=== PATIENT | female | born 1975 | race Caucasian/White ===

== ENCOUNTER → 2022-03-12 | Outpatient (CLI) | payer SELFPAY ==
[2022-03-12 15:09] LABS: Estradiol 24.1 pg/mL; Follicle Stimulating Hormone 10.6 mIU/mL; Luteinizing Hormone 2.1 mIU/mL; Prolactin 8.8 ng/mL; Thyroid Stim Hormone (TSH) 1.55 uIU/mL (0.358-3.74)
[2022-03-21 14:12] LABS: HPV APTIMA, High Risk Negative (Negative)
== END | disposition home or self-care (01) ==
PROVIDERS: Visit Provider Student in an Organized Health Care Education/Training Program
DX: N93.9 Abnormal uterine and vaginal bleeding, unspecified (principal)
CPT/HCPCS: 36415; 82670; 83001; 83002; 84146; 84443; 87624; 88175; G0145

== ENCOUNTER → 2022-05-17 | Outpatient (CLI) | payer SELFPAY ==
--- NOTE | 2022-05-17 | EMB_PTH ---
PATIENT: ANNA GUPTA LOC: [facility] U#:[id number] AGE/SX: 46/F ROOM: RE05/17/[address]: Dr. Evelyn Mcgee, : 1975 BED: DIS: 05/17/2022 SPEC #: [id number] RECD: 05/17/22 12:12 STATUS: GIORGI DIANELYS #: [id number] HEIDI: 05/17/22 00:[address]: Evelyn Mcgee DEPT: SURGICAL PATHOLOGY RECD BY: James Currie Tissues: Endometrium, NOS Procedures: Surgery Specimen Level IV HEADER OPERATION: Endometrial biopsy PRE-OP DIAGNOSIS: Abnormal uterine bleeding TISSUE SUBMITTED: Endometrial biopsy MICROSCOPIC DIAGNOSIS Endometrium, biopsy: Proliferative endometrium with focal glandular breakdown. AM:jared 05/18/2022 MICROSCOPIC DESCRIPTION Slides are reviewed. GROSS DESCRIPTION Received is one container labeled with the patient's name and not further designated. The specimen consists of multiple irregular fragments of pink-parekh soft tissue that in aggregate measure 2.5 x 2 x 0.2 cm. The specimen is totally submitted in one cassette. / AM:jared 05/17/2022 TC:5 CPT: 79020
== END | disposition home or self-care (01) ==
PROVIDERS: Visit Provider Student in an Organized Health Care Education/Training Program
DX: N93.9 Abnormal uterine and vaginal bleeding, unspecified (principal)
CPT/HCPCS: 88305